=== PATIENT | male | born 1980 | race Two or more races ===

== ENCOUNTER 2022-11-07 09:04 | Day surgery (SDC) | payer OTHER | END 2022-11-07 15:00 | disposition home or self-care (01) | LOC: AMB-ENDOS 09:04 → CIR.AMB 14:30 → AMB-ENDOS 15:00 | PROVIDERS: ATTEND Colon & Rectal Surgery | DX: D12.4 Benign neoplasm of descending colon (principal); K62.5 Hemorrhage of anus and rectum; R19.4 Change in bowel habit; K64.8 Other hemorrhoids; Z20.822 Contact with and (suspected) exposure to COVID-19 ==